=== PATIENT | male | born 1955 | race Caucasian/White ===

== ENCOUNTER 2019-06-20 09:10 | Emergency (ER) | payer MEDICAID, OTHER ==
[~2019-06-20] VITALS: Ht 165.1 cm; Wt 90.0 kg
[2019-06-20 11:13] VITALS: BP 125/75
== END 2019-06-20 11:14 | disposition home or self-care (01) ==
LOC: ER 09:10
DX: B35.3 Tinea pedis (principal); I10 Essential (primary) hypertension; Z87.19 Personal history of other diseases of the digestive system
CPT/HCPCS: 99281